=== PATIENT | male | born 2005 | race Two or more races ===

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

== ENCOUNTER 2024-03-23 18:03 | Emergency (ER) | payer MEDICAID ==
[2024-03-23 18:52] LABS: BASOPHILS ABSOLUTE AUTO 0.07 K/uL (0.00-0.20); BASOPHILS PERCENT AUTO 0.5 % (0.0-2.0); EOSINOPHILS ABSOLUTE AUTO 0.74 K/uL (0.00-0.50); EOSINOPHILS PERCENT AUTO 5.4 % (0.0-5.0); HEMOGLOBIN 16.1 g/dL (13.1-16.8); IMMATURE GRAN ABSOLUTE AUTO 0.09 10^3/uL (0.00-0.50); IMMATURE GRAN PERCENT AUTO 0.7 % (0.0-5.0); LYMPHOCYTES ABSOLUTE AUTO 2.65 K/uL (0.50-3.50); LYMPHOCYTES PERCENT AUTO 19.2 % (10.0-50.0); MEAN CORPUSCULAR HEMOGLOBIN 28.6 pg (28.2-33.3); MEAN CORPUSCULAR HGB CONC 33.5 g/dL (31.7-36.0); MEAN CORPUSCULAR VOLUME 85.4 fL (84.0-98.0); MONOCYTES ABSOLUTE AUTO 1.78 K/uL (0.00-1.00); MONOCYTES PERCENT AUTO 12.9 % (2.0-14.0); NEUTROPHILS ABSOLUTE AUTO 8.44 K/uL (1.40-7.00); NEUTROPHILS PERCENT AUTO 61.3 % (45.0-80.0); PLATELET COUNT,PLT 393 K/uL (150-350); RED BLOOD CELL COUNT 5.62 M/uL (4.33-5.41); RED CELL DISTRIBUTION WIDTH 13.4 % (11.2-14.1); WHITE BLOOD CELL COUNT,WBC 13.8 K/uL (4.0-10.2)
[2024-03-23 19:06] LABS: ALBUMIN 3.6 g/dL (3.4-5.0); ANION GAP 8.9 meq/L (7-15); BILIRUBIN TOTAL 0.4 mg/dL (0.2-1.0); C-REACTIVE PROTEIN 6.75 mg/dL (0.05-0.30); CARBON DIOXIDE,CO2 30.1 mmol/L (21.0-32.0); CREATININE 1.22 mg/dL (0.51-1.17); EST CRCL DRUG DOSING (CG) 102.87 mL/min; POTASSIUM,K 4.6 mmol/L (3.5-5.1); PROTEIN TOTAL,TP 8.6 g/dL (6.4-8.2)
[2024-03-23] MEDS ORDERED: Take Home: predniSONE 20 MG, 4 Tab Pack ONE (19:31)
[2024-03-23] MEDS: Take Home: predniSONE 20 MG, 4 Tab Pack PO SCH (19:39)
[2024-03-23] MEDS: Take Home: Doxycycline 100 MG Cap, 4 Cap Pack PO SCH (19:39)
== END 2024-03-23 19:42 | disposition home or self-care (01) ==
LOC: LL.ED 18:03
DX: J22 Unspecified acute lower respiratory infection (principal); J45.909 Unspecified asthma, uncomplicated; R03.0 Elevated blood-pressure reading, without diagnosis of hypertension; D72.829 Elevated white blood cell count, unspecified
CPT/HCPCS: 36415; 71046; 80053; 85025; 86140; 87428-QW; 99283; 99285; A9270-GY